=== PATIENT | male | born 1990 ===

== ENCOUNTER 2023-07-08 11:50 | Emergency (ER) | payer OTHER ==
[~2023-07-08] VITALS: Ht 170.2 cm; Wt 136.1 kg
[2023-07-08] MEDS ORDERED: Lactated Ringer's 1,000 ML IV ONE (12:30)
[2023-07-08 13:05] LABS: Source, Urine Clean Catch
[2023-07-08 13:10] LABS: Appearance, Urine Clear (Clear); Bilirubin, Urine Neg (Neg); Blood, Urine Neg (Neg); Color, Urine Amber (P-Yellow); Glucose Qualitative, Urine Neg (Neg); Ketones, Urine Neg (Neg); Leukocyte Esterase, Urine Neg (Neg); Nitrite, Urine Neg (Neg); Protein, Urine 1+ (Neg); Urobilinogen, Urine NORM (Normal); pH, Urine 6.5 (5.0-8.0)
[2023-07-08 13:10] LABS: Hematocrit 42.4 % (37.0-53.0); Hemoglobin 13.8 g/dL (13.5-17.5); Mean Corpuscular HGB 26.2 pg (26.0-34.0); Mean Corpuscular HGB Conc 32.5 g/dL (31.5-36.5); Mean Corpuscular Volume 81 fL (80-100); Mean Platelet Volume 10.7 fL (9.1-12.4); Platelet Count 123 K/mm3 (150-400); RDW Coefficient Variation 14.7 % (11.7-14.2); RDW Standard Deviation 43.3 fL (35.1-46.3); Red Blood Cell Count 5.27 M/mm3 (4.30-5.90); White Blood Cell Count 10.57 K/mm3 (4.00-11.30)
[2023-07-08 13:28] LABS: Albumin, Blood 3.4 g/dL (3.4-5.0); Albumin/Globulin Ratio 0.9 (0.8-1.8); Bilirubin, Total 2.6 mg/dL (0.1-1.0); Calcium, Blood 8.8 mg/dL (8.5-10.1); Creatinine, Blood 0.8 mg/dL (0.60-1.20); Globulin, Blood 3.9 g/dL (2.2-4.0); Magnesium, Blood 2.5 mg/dL (1.6-2.4); Percent Saturation 20.8 % (20.0-50.0); Potassium, Blood 3.8 mmol/L (3.5-5.5); Total Protein, Blood 7.3 g/dL (6.4-8.2)
[2023-07-08 13:53] LABS: BASOPHILS ABSOLUTE MAN 0.21 K/mm3 (0.00-0.23); BASOPHILS PERCENT MAN 2 % (0-2); EOSINOPHILS PERCENT MAN 1 % (0-6); LYMPHOCYTES % ATYPICAL MANUAL 2 % (0-0); LYMPHOCYTES ABSOLUTE MAN 8.77 K/mm3 (0.84-5.20); LYMPHOCYTES PERCENT MAN 81 % (21-46); MONOCYTES ABSOLUTE MAN 0.31 K/mm3 (0.16-1.47); MONOCYTES PERCENT MAN 3 % (4-13); NEUTROPHILS ABSOLUTE MAN 1.16 K/mm3 (1.96-9.15); SEG NEUTROPHILS PERCENT MAN 11 % (41-73); TOTAL CELLS COUNTED 100
== END 2023-07-08 17:21 | disposition home or self-care (01) ==
LOC: ER 11:50
PROVIDERS: Physician Assistant
DX: R16.2 Hepatomegaly with splenomegaly, not elsewhere classified (principal); E86.0 Dehydration; R79.89 Other specified abnormal findings of blood chemistry; K92.1 Melena; D69.6 Thrombocytopenia, unspecified; R74.01 Elevation of levels of liver transaminase levels; R74.8 Abnormal levels of other serum enzymes; Z87.19 Personal history of other diseases of the digestive system
CPT/HCPCS: 74177; 80053; 82728; 83540; 83550; 83690; 83735; 85025; 96360-59; 99284-25; J7120; Q9967